=== PATIENT | male | born 1980 | race Caucasian/White ===

== ENCOUNTER → 2018-07-03 17:34 | Outpatient (CLI) | payer OTHER, SELFPAY ==
--- NOTE | 2018-07-03 | DI.MRI.S_ITS ---
PROCEDURE: MR ANKLE LT WO CON INDICATIONS: Left ankle pain TECHNIQUE: Noncontrast sagittal T1 spin echo and T2 fast spin echo with fat saturation, axial proton density fast spin echo and T2 fast spin echo with fat saturation, coronal T1 spin echo and T2 fast spin echo with fat saturation through the ankle/hindfoot. COMPARISON: None. FINDINGS: Image quality: Excellent. Bones and joints: Mild marrow edema involving the lateral periphery of lateral malleolus is seen, and no discrete fracture line is noted. Finding likely represent mild contusion in this area. No other area of abnormal marrow signal. No hindfoot coalitions. No osteochondral injuries of the talar dome. Small amount of fluid within subtalar joint is seen. No gross intra-articular body. Medial structures: Low-grade tenosynovitis involving the flexor tendons are seen with fluid distending the flexor tendon sheath from the level of tibiotalar joint extending to the level of lower calcaneus. No evidence of flexor tendon rupture. The posterior tibial neurovascular bundle appears normal within the tarsal tunnel, without extrinsic mass effect. The deep layer (anterior and posterior tibiotalar ligaments) and superficial layer (tibionavicular, tibiospring, and tibiocalcaneal ligaments) of the deltoid ligament appear normal. The spring ligament components (superomedial calcaneonavicular, medioplantar oblique calcaneonavicular, and inferoplantar longitudinal ligaments) are intact. Lateral structures: The anterior talofibular, calcaneofibular, and posterior talofibular ligaments appear intact. More superiorly, the anterior and posterior tibiofibular ligaments appear intact, as is the intermalleolar ligament. The tibiofibular syndesmosis is normal in width at 2 mm or less. Low to moderate grade tenosynovitis involving peroneus tendons are seen extending from the level of lateral malleolus to their distal insertion. Low-grade intrasubstance partial thickness tear cannot be excluded. No full-thickness peroneus tendon rupture. Adjacent bony peroneal tubercle and retrotrochlear prominence are normal in size. The sinus tarsi demonstrates normal fatty signal, without edema, fibrosis, or cyst formation. Visualized sinus tarsi components (cervical ligament, interosseous talocalcaneal ligament, roots of the inferior extensor retinaculum) appear normal. The calcaneonavicular and calcaneocuboid components of the bifurcate ligament appear intact. The dorsal calcaneocuboid ligament appears intact. Anterior structures: The tibialis anterior, extensor hallucis longus, and extensor digitorum longus tendons appear intact. The dorsal talonavicular ligament appears intact. Posterior and plantar structures: Achilles tendon is intact. Medial and lateral bands of the plantar fascia are of normal thickness. No abductor digiti quinti muscle atrophy to suggest Hurst neuropathy. IMPRESSION: 1. Low to moderate grade tenosynovitis involving peroneus tendons, cannot rule out low-grade intrasubstance partial thickness involving distal peroneus tendons near their distal insertion. No full-thickness peroneus tendon rupture. 2. Low-grade tenosynovitis involving the flexor tendons as above. No flexor tendon tear. 3. Rest of tendons and ligaments are intact. 4. Likely bony contusion involving lateral periphery of lateral malleolus. No fracture or dislocation. Dictated by: Franklin Adam M.D. on 07/04/2018 at 10:21 Approved by: Franklin Adam M.D. on 07/04/2018 at 10:28
== END ==
PROVIDERS: Visit Provider Podiatrist
DX: M25.572 Pain in left ankle and joints of left foot (principal); M65.872 Other synovitis and tenosynovitis, left ankle and foot
CPT/HCPCS: 73721

== ENCOUNTER 2018-11-11 20:13 | Emergency (ER) | payer OTHER, SELFPAY ==
[2018-11-11 20:19] VITALS: BP 139/83; PULSE 92; RESP 18; TEMP 37; O2SAT 97; BMI 33.2
[2018-11-12] MEDS: HYDROCODONE/ACET 5/325 PREPACK 1 BOTTLE MISC (01:05)
[2018-11-12 01:12] VITALS: BP 128/74; PULSE 71; RESP 16; O2SAT 100
--- NOTE | 2018-11-12 06:52 | ED_ITS ---
HPI - Extremity Injury (Lower) General Chief Complaint: Extremity Injury, Lower Stated Complaint: LT LEG PAIN Time Seen by Provider: 11/11/18 21:42 Source: patient and family Mode of arrival: ambulatory Limitations: no limitations History of Present Illness HPI Narrative: 38-year-old male nonsmoker with benign medical history presents with his and children and a chief complaint of severe pain in his left calf . He is exercising, using a jump rope, when he felt a ?explosion? in his left calf. Since then he has had significant pain while walking or flexing and extending his foot at the ankle. He denies any knee, thigh or hip pain. He denies any history of this same period he denies any direct trauma. He denies any numbness, tingling, weakness. MD complaint: leg injury Place: street/outdoors Severity: moderate Relieving factors: rest Exacerbating factors: movement Context: other Associated symptoms: snap/pop sensation and swelling Review of Systems Constitutional Denies chills, Denies fever(s), Denies lethargy and Denies weakness Eyes Denies change in vision, Denies eye discharge, Denies irritation and Denies loss of vision ENT Ears, Nose, Mouth, and Throat: Denies change in voice, Denies neck pain and Denies sore throat Cardiovascular Denies chest pain, Denies irregular heart rhythm, Denies lightheadedness, Denies palpitations, Denies dyspnea, Denies dyspnea on exertion and Denies orthopnea Respiratory Denies cough, Denies dyspnea, Denies dyspnea on exertion and Denies wheezing Gastrointestinal Gastrointestinal: Denies abdominal pain, Denies change in bowel habits, Denies diarrhea, Denies nausea and Denies vomiting Genitourinary Denies hematuria, Denies flank pain, Denies urinary incontinence and Denies urinary urgency Musculoskeletal Reports limited range of motion and Denies neck pain Integumentary/Breasts Denies pruritus, Denies erythema, Denies rash and Denies wounds Neurologic Denies confusion, Denies loss of vision and Denies weakness Psychiatric Denies anxiety, Denies confusion, Denies depression, Denies homicidal ideation and Denies suicidal ideation Endocrine Denies palpitations Hematologic/Lymphatic Denies easy bruising Allergic/Immunologic Denies wheezing Exam Narrative Exam Narrative: GEN: AOx3 and in mild distress EYES: Pupils are equal, round, and reactive to light and accommodation. Extraoccular muscles are intact bilaterally. There is no subconjunctival hemorrhage or exudate. CHEST: Lungs are clear to auscultation bilaterally and free of wheezes, rales, or rhonchi. Heart rate is regular rhythm, there are no murmurs, clicks, rubs, or gallops. There is no chest wall tenderness. ABD: Abdomen is soft and nontender. There is no guarding or rebound. Bowel sounds are normal in all 4 quadrants. There is no mass or organomegaly. EXT: Left lower extremity tender to palpate in the posterior aspect. Minimal swelling noted. No warmth, redness or ecchymosis. Achilles tendon appears intact and is palpable without any obvious manifestations of rupture. Calf squeeze results in plantar flexion. Majority of tenderness is in the mid posterior calf raising the suspicion of a partial gastroc or soleus tear SKIN: Warm, pink, and dry. No erythema or rash Initial Vital Signs Initial Vital Signs: Vital Signs Temperature 98.6 F 11/11/18 20:19 Pulse Rate 92 H 11/11/18 20:19 Respiratory Rate 18 11/11/18 20:19 Blood Pressure 139/83 11/11/18 20:19 Pulse Oximetry 97 11/11/18 20:19 Procedures Orthopedic Splinting/Casting Injury #1: Side: left Lower Extremity Injury Location: ankle Lower Extremity Immobilizer: boot orthosis Post splinting neuro exam: intact Post splinting vascular exam: intact Placed by: Nursing Course Orders Ordered: Discontinued Medications Hydrocodone Bitart/Acetaminophen (Vicodin Prepack) 1 bottle MISC SEEINSTR ONE Stop: 11/12/18 00:56 Last Admin: 11/12/18 01:05 Dose: 1 bottle Vital Signs - 8 hr 11/12/18 01:12 Pulse Rate 71 Respiratory Rate 16 Blood Pressure 128/74 Pulse Oximetry 100 MDM - Extremity Injury (Lower) MDM Narrative Medical decision making narrative: Multiple etiologies for patient's symptoms considered including: [Achilles tendon rupture versus gastrocs/soleus injury versus other] Patient's symptoms improved or duration of stay with above-stated therapies. Findings and discharge diagnosis discussed with patient/family followed by verbalization of understanding Return precautions discussed with patient/family whom verbalize understanding. Discharge Plan Departure Patient Disposition: Home Clinical Impression: Strain of calf muscle Qualifiers: Encounter type: initial encounter Laterality: left Qualified Code(s): S86.812A - Strain of other muscle(s) and tendon(s) at lower leg level, left leg, initial encounter Discharge Date/Time: 11/12/18 01:12 Interventions: ED Discharge Assessment Last Done: 11/12/18 01:12 Instructions: DI for Calf Muscle Strain Activity Restrictions/Additional Instructions: *You have been diagnosed with [acute calf strain] *What to do: *Take medications as directed *Follow up with your primary care provider in 2-3 days, call for an appointment. Let them know you were seen in the Emergency Department and that we ask that you be seen in follow up *Return to ER if you should have any new, worsening or concerning symptoms
== END 2018-11-12 01:12 | disposition home or self-care (01) ==
PROVIDERS: Emergency Provider Emergency Medicine
DX: S86.812A Strain of other muscle(s) and tendon(s) at lower leg level, left leg, initial encounter (principal)
CPT/HCPCS: 99283

== ENCOUNTER 2020-09-27 07:54 | Emergency (ER) | payer OTHER, SELFPAY ==
[2020-09-27 08:00] VITALS: BMI 30.9
--- NOTE | 2020-09-27 09:59 | DI.RAD.S_ITS ---
PROCEDURE: XR KNEE RT 3V INDICATIONS: knee pain TECHNIQUE: 3 views of the knee were acquired. COMPARISON: None. FINDINGS: Bones: No fractures or dislocations. No suspicious bony lesions. Soft tissues: Moderate joint effusion. No suspicious soft tissue calcifications. IMPRESSION: Moderate joint effusion in the suprapatellar bursal space, no loose body or fracture found. If recent trauma has occurred this likely indicates internal derangement that may be detectable by MR scanning. Dictated by: Robel Villanueva M.D. on 09/27/2020 at 10:31 Approved by: Robel Villanueva M.D. on 09/27/2020 at 10:32
[2020-09-27 10:00] VITALS: BP 126/77; PULSE 92; RESP 16; TEMP 37.1
--- NOTE | 2020-09-27 10:44 | ED.LOWEXIN ---
HPI - Extremity Injury (Lower) General Chief Complaint: Extremity Injury, Lower Stated Complaint: right knee pain Time Seen by Provider: 09/27/20 10:07 Source: patient Mode of arrival: Wheelchair Limitations: no limitations History of Present Illness HPI Narrative: Patient is a 40-year-old male who presents with right knee pain. He does not remember any specific injury. 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 Today is unable to ambulate. He has not taken anything today yet for pain. He has no numbness tingling or weakness. He has a decreased range of motion due to pain. Related Data Allergies Allergy/AdvReac Type Severity Reaction Status Date / Time Iodine and Iodide Containing Allergy Verified 09/27/20 10:01 Produc Review of Systems Review of Systems Narrative: GENERAL: Denies chills,fever HEENT: Denies throat pain RESPIRATORY: Denies dyspnea, cough, wheezing CARDIOVASCULAR: Denies chest pain, palpitations GASTROINTESTINAL: Denies nausea, vomiting MUSCULOSKELETAL: See HPI SKIN: No rash, no laceration, no pruritus NEUROLOGIC: Denies weakness, dizziness, headache, numbness 8 point review of systems is negative except for those stated above and HPI Exam Initial Vital Signs Initial Vital Signs: Vital Signs Temperature 98.8 F 09/27/20 10:00 Pulse Rate 92 H 09/27/20 10:00 Respiratory Rate 16 09/27/20 10:00 Blood Pressure 126/77 09/27/20 10:00 GENERAL: Well-appearing, well-nourished and in no acute distress. CARDIOVASCULAR: peripheral pulses in tact, cap refill <2 sec RESPIRATORY: No respiratory distress, speaks in full sentences without difficulty EXTREMITIES: Normal range of motion, no clubbing or edema. Neurovascularly intact Right knee is swollen tender laterally he I am able to passively flex and extend his knee although it is limited due to pain. Distal pedal pulse intact. Mild ballotable patella. NEUROLOGICAL: Cranial nerves II through XII grossly intact. Normal gait and speech. SKIN: Warm, dry, no petechiae, no rashes or lesions. Course Orders Ordered: Discontinued Medications Ketorolac Tromethamine (Ketorolac 30 Mg/Ml Vial) 30 mg IM NOW ONE Stop: 09/27/20 10:52 Last Admin: 09/27/20 11:05 Dose: 30 mg Documented by: KBROTEM Vital Signs Vital signs: Vital Signs - 8 hr 09/27/20 11:16 Pulse Rate 93 H Respiratory Rate 16 Blood Pressure 127/85 Pulse Oximetry 96 MDM - Extremity Injury (Lower) Imaging Data Extremity x-ray #1: Radiologist's Impression: PROCEDURE: XR KNEE RT 3V INDICATIONS: knee pain TECHNIQUE: 3 views of the knee were acquired. COMPARISON: None. FINDINGS: Bones: No fractures or dislocations. No suspicious bony lesions. Soft tissues: Moderate joint effusion. No suspicious soft tissue calcifications. IMPRESSION: Moderate joint effusion in the suprapatellar bursal space, no loose body or fracture found. If recent trauma has occurred this likely indicates internal derangement that may be detectable by MR scanning. Dictated by: Robel Villanueva M.D. on 09/27/2020 at 10:31 Discharge Plan Departure Patient Disposition: Home Clinical Impression: Knee sprain Qualifiers: Encounter type: initial encounter Involved ligament of knee: other ligament Laterality: right Qualified Code(s): S83.8X1A - Sprain of other specified parts of right knee, initial encounter Instructions: DI for Knee Sprain Activity Restrictions/Additional Instructions: *You have been diagnosed with knee sprain *What to do: You are found to have some fluid behind her patella. At this time wear knee brace, use crutches, elevate and ice as needed. He may require physical therapy or even outpatient MRI if symptoms do not improve *Continue to take medications as directed Ibuprofen 800 mg every 8 hours if needed for [id number] pain Tylenol 1000 mg every 6 hours if needed for pain *Follow up with your primary care provider in 2-3 days *Return to ER if you should have increasing pain swelling difficulty walking or any new, worsening or concerning symptoms Referrals: [facility] [Provider Group] [facility] [Provider Group]
[2020-09-27] MEDS: KETOROLAC 30 MG/ML VIAL IM (11:05)
[2020-09-27 11:16] VITALS: BP 127/85; PULSE 93; RESP 16; O2SAT 96
== END 2020-09-27 11:27 | disposition home or self-care (01) ==
PROVIDERS: Emergency Provider Emergency Medicine
DX: S83.8X1A Sprain of other specified parts of right knee, initial encounter (principal)
CPT/HCPCS: 73562; 96372; 99283; 99284; J1885